=== PATIENT | male | born 1995 | race Caucasian/White ===

== ENCOUNTER 2018-01-31 19:18 | Observation (INO) | payer OTHER ==
[~2018-01-31 19:18] MED LIST: Iopamidol 370 76% 100 ML VIAL ONE
[2018-01-31] MEDS ORDERED: Morphine 4 MG/ML VIAL ONE (19:28)
[2018-01-31 19:37] LABS: #Eosinphils 0.1 thou/uL (0.0-0.7); #Lymphocytes 2.8 thou/uL (1.20-3.40); #Monocytes 0.9 thou/uL (0.11-0.59); #Neutrophils 8.4 thou/uL (1.40-6.50); %Basophils 0.3 % (0.0-1.0); %Eosinophils 0.9 % (0.0-10.0); %Lymphocytes 22.8 % (21.0-51.0); %Monocytes 7.7 % (0.0-10.0); %Neutrophils 68.4 % (42.0-75.0); Hemoglobin 15.6 g/dL (14.0-18.0); Mean Corpuscular HGB CONC 35.4 g/dL (32.0-36.0); Mean Corpuscular Hemoglobin 31.5 pg (27.0-31.0); Mean Corpuscular Volume 89.1 fl (80.0-94.0); Mean Platelet Volume 6.3 fL (7.4-10.4); Platelet Count 304 thou/uL (130-400); RBC Distribution Width 11.3 % (11.5-14.5); Red Blood Cell (RBC) Count 4.94 mill/uL (4.70-6.10); White Blood Cell (WBC) Count 12.3 thou/uL (4.8-10.8)
[2018-01-31 19:43] LABS: PTT 25.7 SEC (22.9-36.1); Prothrombin Time 13.5 SEC (12.0-14.7)
[2018-01-31 19:48] LABS: ALT (SGPT) 29 U/L (8-55); AST (SGOT) 30 U/L (5-34); Alcohol Less than 10 mg/dL (Less than 10); Alkaline Phosphatase 114 U/L (40-150); Anion Gap 15 mmol/L (10-20); BUN (Urea Nitrogen) 13 mg/dL (8.9-20.6); Bilirubin, Total 0.9 mg/dL (0.2-1.2); Calc. Creatinine Clearance 0 mL/min (70-130); Calcium 10.4 mg/dL (7.8-10.44); Carbon Dioxide 25 mmol/L (22-29); Chloride 105 mmol/L (98-107); Estimated GFR-MDRD 78; Globulin 2.8 g/dL (2.4-3.5); Glucose 102 mg/dL (70-105); Potassium 4.4 mmol/L (3.5-5.1); Protein, Total 7.8 g/dL (6.0-8.3); Sodium 141 mmol/L (136-145)
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
[2018-01-31] MEDS ORDERED: Ketorolac Tromethamine 30 MG/ML VIAL ONE (22:02)
[2018-01-31] MEDS ORDERED: traMADol HCl 50 MG TAB PO PRN (23:06)
[2018-01-31] MEDS ORDERED: Ondansetron HCl/PF 4 MG/2 ML Vial IVP PRN (23:07)
[2018-01-31] MEDS ORDERED: Dextrose 5% in Water 1,000 ML IV PRN (23:07)
[2018-01-31] MEDS ORDERED: Dextrose 50% Abboject 50 ML SYRINGE SLOW IVP PRN (23:07)
[2018-01-31] MEDS ORDERED: Ondansetron ODT 4 MG TAB PO PRN (23:07)
[2018-01-31] MEDS ORDERED: Enoxaparin Sodium 40 MG/0.4 ML SYRINGE SC SCH (23:30)
[2018-01-31] MEDS ORDERED: levETIRAcetam 500 MG TAB PO SCH (23:30)
[2018-02-01] MEDS: Ibuprofen 800 MG TAB PO SCH ×2 (01:16→09:21)
[2018-02-01] MEDS: Acetaminophen 500 MG TAB PO SCH ×3 (01:16→12:22)
[2018-02-01] MEDS: traMADol HCl 50 MG TAB PO SCH ×3 (01:16→12:22)
[2018-02-01 01:42] VITALS: BMI 17.4
[2018-02-01 01:44] VITALS: TEMP 97.8
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
[2018-02-01 08:12] VITALS: BP 125/68
[2018-02-01] MEDS ORDERED: Senokot S 8.6-50 MG TAB PO SCH (09:00)
[2018-02-01] MEDS ORDERED: Famotidine 20 MG TAB PO SCH (09:00)
[2018-02-01] MEDS ORDERED: levETIRAcetam 500 MG TAB PO SCH (09:00)
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
[2018-02-01] MEDS ORDERED: Enoxaparin Sodium 40 MG/0.4 ML SYRINGE SC SCH (21:00)
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
== END 2018-02-01 13:00 | disposition home or self-care (01) ==
LOC: ERS 19:18 → SURG A 23:07
PROVIDERS: ADMIT Surgery; ATTEND Surgery
DX: G89.11 Acute pain due to trauma (principal); S06.0X0A Concussion without loss of consciousness, initial encounter; G40.909 Epilepsy, unspecified, not intractable, without status epilepticus; F17.210 Nicotine dependence, cigarettes, uncomplicated; F12.90 Cannabis use, unspecified, uncomplicated; V47.5XXA Car driver injured in collision with fixed or stationary object in traffic accident, initial encounter; Y92.410 Unspecified street and highway as the place of occurrence of the external cause; Z72.89 Other problems related to lifestyle; Z79.899 Other long term (current) drug therapy; Z88.5 Allergy status to narcotic agent; Z98.890 Other specified postprocedural states
CPT/HCPCS: 70450; 71045; 71260; 72125; 72170; 74177; 80053; 80307; 84146; 85025; 85610; 85730; 86850; 86900; 86901; 93005; 96372; 96374; 96375; G0378; G0390; J1650; J1885; J2270